=== PATIENT | male | born 1980 | race African-American/Black ===

== ENCOUNTER 2018-06-21 22:03 | Emergency (ER) | payer SELFPAY ==
[~2018-06-21] VITALS: Ht 188 cm; Wt 98.0 kg
[2018-06-21] MEDS ORDERED: METHYLPREDNISOLONE SOD SUCC 125 MG/2 ML VIAL IV ONE (22:45)
[2018-06-21] MEDS ORDERED: FAMOTIDINE 20MG TABLET PO ONE (22:45)
[2018-06-21] MEDS ORDERED: DIPHENHYDRAMINE 50MG/ML VIAL IV ONE (22:45)
[2018-06-22 00:21] VITALS: BP 162/112
== END 2018-06-22 00:38 | disposition home or self-care (01) ==
LOC: ER 22:03
DX: J30.81 Allergic rhinitis due to animal (cat) (dog) hair and dander (principal)
CPT/HCPCS: 96374; 96375; 99283; J1200; J2930